=== PATIENT | female | born 1995 ===

== ENCOUNTER 2020-09-11 13:00 | Emergency (ER) | payer BC, MEDICAID ==
--- NOTE | 2020-09-11 13:34 | EDM.PDOC ---
ED HPI GENERAL MEDICAL PROBLEM - General Chief Complaint: Abdominal Pain Stated Complaint: LWR ABDOMINAL PAIN Time Seen by Provider: 09/11/20 13:04 Source of Information: Reports: Patient, Old Records History Limitations: Reports: No Limitations - History of Present Illness INITIAL COMMENTS - FREE TEXT/NARRATIVE: 24-year-old female with past medical history of menorrhagia, endometriosis, status post IUD placement presenting with abdominal pain and vaginal discharge. Patient had a Mirena IUD placed in March 2020. She reports a 1 month history of brownish vaginal discharge that became foul-smelling about 2 weeks ago. She is concerned that she may have either bacterial vaginosis or yeast infection. She also complains of several days of dysuria. She denies any vaginal bleeding or hematuria or genital lesions. She reports a 6-day history of intermittent right lower quadrant/right adnexal pain rating to the back. She describes this as "cramping", nothing makes it better or worse. No history of prior pain like this. She is status post appendectomy. Intermittently taking acetaminophen and ibuprofen at home and is also on Keflex for dental infection at the moment and has been taking this for several days. Denies fever, chills, diarrhea, hematemesis, emesis, hematochezia, history of kidney stones. ROS: A 10-point review of systems was negative, except as noted in the HPI (or in the ROS section of this note). Past medical history: Reviewed, no additional pertinent history. Surgical history: Reviewed in system, no additional pertinent history. Social history: Reviewed in system, no additional pertinent history. Family history: Reviewed in system, no additional pertinent history. PHYSICAL EXAM Vital signs reviewed. Nursing notes reviewed. Constitutional: Awake, alert, non-distressed. Head: Normocephalic, atraumatic. Eyes: EOMI, conjunctiva normal, no discharge, no scleral icterus. Ears, Nose, Throat: External ears and nose normal, moist oral mucosa. Cardiovascular: 2+ radial pulse, capillary refill less than 2 seconds. Pulmonary: normal work of breathing, no accessory muscle use. Abdomen/GI: Soft, mild right adnexal tenderness, nondistended, no guarding or rigidity, no masses. No CVA tenderness. (Female) Exam: Normal External Exam, Other. No: Cervical Discharge, Cervical Lesions, Vaginal Bleeding, Vaginal Discharge, Vaginal Lesions. Chaperoned by Nat Cameron RN. Musculoskeletal: No deformities. Integumentary: Appropriate color for ethnicity, warm, dry, no pallor or jaundice, no rash. Neurologic: Alert, answering questions appropriately, normal speech, no facial droop, moving all extremities well. Psychiatric: Appropriate mood and affect, normal thought process. RLQ abdomen Pain Score (Numeric/FACES): 4 - Related Data Allergies Allergy/AdvReac Type Severity Reaction Status Date / Time Penicillins Allergy Anaphylactic Verified 09/11/20 13:20 Shock Home Meds: Home Meds cephALEXin [Keflex] 500 mg PO QID 09/11/20 [History] nitrofurantoin macrocrystaL [Nitrofurantoin] 100 mg PO BID 5 Days #10 capsule 09/11/20 [Rx] Past Medical History - Past Health History Medical/Surgical History: Denies Medical/Surgical History Gastrointestinal History: Reports: None Genitourinary History: Reports: None [employer] History: Reports: Endometriosis, , Spontaneous Other [employer] History: P2 Psychiatric History: Reports: Anxiety - Past Surgical History GI Surgical History: Reports: Appendectomy Female Surgical History: Reports: Section Social & Family History - Family History Family Medical History: Noncontributory - Tobacco Use Second Hand Smoke Exposure: Yes - Caffeine Use Caffeine Use: Reports: Coffee - Recreational Drug Use Recreational Drug Use: No ED ROS GENERAL - Review of Systems Review Of Systems: See Below ED EXAM, GI/ABD - Physical Exam Exam: See Below (Female) Exam: Normal External Exam, Other. No: Cervical Discharge, Cervical Lesions, Vaginal Bleeding, Vaginal Discharge, Vaginal Lesions Course - Vital Signs Text/Narrative:: 24-year-old female with 1 month history of vaginal discharge and 6 days of right adnexal/right lower quadrant pain. Patient hemodynamically stable, afebrile, well-appearing, looks nontoxic. Differential diagnosis includes but is not limited to: STI, PID, TOA, ovarian cyst, ovarian torsion, kidney stone, intra-abdominal infection, epiploic appendagitis, BV, trichomonal infection, yeast infection, stump appendicitis, colitis, and many others. 1400: CBC shows normal cell lines. Urinalysis shows positive nitrites but no blood and test is negative. Declined offers of analgesic medications. Ordered additional labs, CT, pelvic ultrasound, wet prep and pelvic exam. 1422: Electrolytes and renal function are reassuring. Normal LFTs. Waiting for pelvic ultrasound and CT. 1558: CT abdomen/pelvis and pelvic ultrasound showed no acute pathology to exp albina the patient's right lower quadrant/right adnexal pain. CBC, metabolic panel, LFTs reassuring. Awaiting TMA swab results. 1622: Work-up is essentially negative. Blood work is reassuring. Urinalysis concerning for possible cystitis, she does have some dysuria so we will treat her for UTI. Her wet prep is negative. She is resting comfortably. I see no evidence of a vaginal or pelvic infection at this point. Her abdomen is soft and there are no peritoneal signs. No evidence of an acute surgical emergency at this point or an intra-abdominal infection or pelvic infection other than acute cystitis. Patient stable discharge home with outpatient primary care follow-up. Will prescribe a short course of Macrobid and recommend Tylenol and Motrin. Plan: Patient is stable to discharge home with outpatient primary care clinic follow-up. Strict emergency department return precautions were provided, patient indicated understanding. All questions were answered prior to departure. Discharged in good condition. Last Recorded V/S: Last Vital Signs Temp 35.7 C L 09/11/20 13:15 Pulse 99 09/11/20 13:15 Resp 16 09/11/20 13:15 BP 126/67 09/11/20 13:15 Pulse Ox 99 09/11/20 13:15 - Orders/Labs/Meds Orders: Active Orders 24 hr Category Date Time Status Pelvic Exam, Set Up [RC] ASDIRECTED Care 09/11/20 13:57 Active CHLAMYDIA AND GONORRHEA BY TMA Stat Lab 09/11/20 14:35 Received Sodium Chloride 0.9% [Saline Flush] Med 09/11/20 13:55 Active 10 ml FLUSH ASDIRECTED PRN Sodium Chloride 0.9% [Saline Flush] Med 09/11/20 13:55 Active 2.5 ml FLUSH ASDIRECTED PRN Saline Lock Insert [OM.PC] Stat Oth 09/11/20 13:55 Ordered Medication Orders Sodium Chloride (Saline Flush) 10 ml FLUSH ASDIRECTED PRN PRN Reason: Keep Vein Open Sodium Chloride (Saline Flush) 2.5 ml FLUSH ASDIRECTED PRN PRN Reason: Keep Vein Open Labs: Laboratory Tests 09/11/20 09/11/20 09/11/20 Range/Units 13:15 13:15 13:26 WBC 7.92 (4.0-11.0) K/uL RBC 4.48 (4.30-5.90) M/uL Hgb 13.5 (12.0-16.0) g/dL Hct 41.8 (36.0-46.0) % MCV 93.3 (80.0-98.0) fL MCH 30.1 (27.0-32.0) pg MCHC 32.3 (31.0-37.0) g/dL RDW Std Deviation 49.5 (28.0-62.0) fl RDW Coeff of Isabel 15 (11.0-15.0) % Plt Count 229 (150-400) K/uL MPV 10.40 (7.40-12.00) fL Neut % (Auto) 68.3 (48.0-80.0) % Lymph % (Auto) 23.1 (16.0-40.0) % Kendall % (Auto) 6.4 (0.0-15.0) % Eos % (Auto) 1.6 (0.0-7.0) % Baso % (Auto) 0.6 (0.0-1.5) % Neut # (Auto) 5.4 (1.4-5.7) K/uL Lymph # (Auto) 1.8 (0.6-2.4) K/uL Kendall # (Auto) 0.5 (0.0-0.8) K/uL Eos # (Auto) 0.1 (0.0-0.7) K/uL Baso # (Auto) 0.1 (0.0-0.1) K/uL Nucleated RBC % 0.0 /100WBC Nucleated RBCs # 0 K/uL Sodium (136-145) mmol/L Potassium (3.5-5.1) mmol/L Chloride (98-107) mmol/L Carbon Dioxide (21.0-32.0) mmol/L BUN (7.0-18.0) mg/dL Creatinine (0.6-1.0) mg/dL Est Cr Clr Drug Dosing mL/min Estimated GFR (MDRD) ml/min Glucose (74-106) mg/dL Calcium (8.5-10.1) mg/dL Total Bilirubin (0.2-1.0) mg/dL AST (15-37) IU/L ALT (14-63) IU/L Alkaline Phosphatase (46-116) U/L Total Protein (6.4-8.2) g/dL Albumin (3.4-5.0) g/dL Globulin (2.6-4.0) g/dL Albumin/Globulin Ratio (0.9-1.6) Urine Color YELLOW Urine Appearance SLT CLOUDY Urine pH 7.5 (5.0-8.0) Ur Specific Minter 1.020 (1.001-1.035) Urine Protein NEGATIVE (NEGATIVE) mg/dL Urine Glucose (UA) NEGATIVE (NEGATIVE) mg/dL Urine Ketones NEGATIVE (NEGATIVE) mg/dL Urine Occult Blood NEGATIVE (NEGATIVE) Urine Nitrite POSITIVE H (NEGATIVE) Urine Bilirubin NEGATIVE (NEGATIVE) Urine Urobilinogen 0.2 (<2.0) EU/dL Ur Leukocyte Esterase NEGATIVE (NEGATIVE) Urine RBC 0-1 (0-2/HPF) Urine WBC 2-3 (0-5/HPF) Ur Epithelial Cells FEW (NONE-FEW) Amorphous Sediment FEW (NEGATIVE) Urine Bacteria FEW (NEGATIVE) Urine Mucus FEW (NONE-MOD) Urine HCG, Qual NEGATIVE (NEGATIVE) Vangie species DNA (NEGATIVE) Gardnerella DNA Probe (NEGATIVE) Trichomonas DNA Probe (NEGATIVE) 09/11/20 09/11/20 Range/Units 13:26 14:35 WBC (4.0-11.0) K/uL RBC (4.30-5.90) M/uL Hgb (12.0-16.0) g/dL Hct (36.0-46.0) % MCV (80.0-98.0) fL MCH (27.0-32.0) pg MCHC (31.0-37.0) g/dL RDW Std Deviation (28.0-62.0) fl RDW Coeff of Isbael (11.0-15.0) % Plt Count (150-400) K/uL MPV (7.40-12.00) fL Neut % (Auto) (48.0-80.0) % Lymph % (Auto) (16.0-40.0) % Kendall % (Auto) (0.0-15.0) % Eos % (Auto) (0.0-7.0) % Baso % (Auto) (0.0-1.5) % Neut # (Auto) (1.4-5.7) K/uL Lymph # (Auto) (0.6-2.4) K/uL Kendall # (Auto) (0.0-0.8) K/uL Eos # (Auto) (0.0-0.7) K/uL Baso # (Auto) (0.0-0.1) K/uL Nucleated RBC % /100WBC Nucleated RBCs # K/uL Sodium 141 (136-145) mmol/L Potassium 3.6 (3.5-5.1) mmol/L Chloride 102 (98-107) mmol/L Carbon Dioxide 29.7 (21.0-32.0) mmol/L BUN 11 (7.0-18.0) mg/dL Creatinine 1.0 (0.6-1.0) mg/dL Est Cr Clr Drug Dosing 71.76 mL/min Estimated GFR (MDRD) > 60.0 ml/min Glucose 88 (74-106) mg/dL Calcium 9.6 (8.5-10.1) mg/dL Total Bilirubin 0.3 (0.2-1.0) mg/dL AST 14 L (15-37) IU/L ALT 20 (14-63) IU/L Alkaline Phosphatase 71 (46-116) U/L Total Protein 8.1 (6.4-8.2) g/dL Albumin 4.8 (3.4-5.0) g/dL Globulin 3.3 (2.6-4.0) g/dL Albumin/Globulin Ratio 1.5 (0.9-1.6) Urine Color Urine Appearance Urine pH (5.0-8.0) Ur Specific Minter (1.001-1.035) Urine Protein (NEGATIVE) mg/dL Urine Glucose (UA) (NEGATIVE) mg/dL Urine Ketones (NEGATIVE) mg/dL Urine Occult Blood (NEGATIVE) Urine Nitrite (NEGATIVE) Urine Bilirubin (NEGATIVE) Urine Urobilinogen (<2.0) EU/dL Ur Leukocyte Esterase (NEGATIVE) Urine RBC (0-2/HPF) Urine WBC (0-5/HPF) Ur Epithelial Cells (NONE-FEW) Amorphous Sediment (NEGATIVE) Urine Bacteria (NEGATIVE) Urine Mucus (NONE-MOD) Urine HCG, Qual (NEGATIVE) Vangie species DNA NEGATIVE (NEGATIVE) Gardnerella DNA Probe NEGATIVE (NEGATIVE) Trichomonas DNA Probe NEGATIVE (NEGATIVE) Meds: Medications Generic Name Dose Route Start Last Admin Trade Name Freq PRN Reason Stop Dose Admin Sodium Chloride 10 ml 09/11/20 13:55 Saline Flush FLUSH ASDIRECTED PRN Keep Vein Open Sodium Chloride 2.5 ml 09/11/20 13:55 Saline Flush FLUSH ASDIRECTED PRN Keep Vein Open Discontinued Medications Generic Name Dose Route Start Last Admin Trade Name Freq PRN Reason Stop Dose Admin Iopamidol 100 ml 09/11/20 14:50 09/11/20 14:50 Isovue Multipack-370 (76%) IVPUSH 09/11/20 14:51 100 ml ONETIME ONE Administration Departure - Departure Time of Disposition: 16:23 Disposition: Home, Self-Care 01 Condition: Good Clinical Impression: Right lower quadrant abdominal pain Acute cystitis Qualifiers: Hematuria presence: without hematuria Qualified Code(s): N30.00 - Acute cystitis without hematuria - Discharge Information *PRESCRIPTION DRUG MONITORING PROGRAM REVIEWED*: Not Applicable *COPY OF PRESCRIPTION DRUG MONITORING REPORT IN PATIENT MANAV: Not Applicable Instructions: Urinary Tract Infection, Adult, Abdominal Pain, Adult, [id number], Pain Without a Known Cause Referrals: [facility] - Family Practice [Provider Group] - 1 Week (Follow-up as needed if symptoms do not improve.) Forms: ED Department Discharge Additional Instructions: You were seen in the emergency department for abdominal pain and vaginal discharge. At this point your CT scan, ultrasound, and blood work are normal. We do not see an obvious explanation for your abdominal pain, there is no evidence of an acute infection or a condition that would need surgery at this point. It looks like you may have a urinary tract infection based on urine testing and we will prescribe some antibiotics. For pain I recommend [id number] extra strength Tylenol and ibuprofen. I do want you to follow-up with a primary medicine clinic in the next few days for reevaluation if your pain does not go away. Warning signs to come back to the ER include heavy vaginal bleeding, fever, chills, worsening pain, or any other new or concerning symptoms. Please return the emergency department immediately if your symptoms worsen or if you feel worse. Thank you for choosing the [facility] emergency department in [place] for your medical needs today. It was a pleasure caring for you. The following information is given to patients seen in the emergency department who are being discharged. This information is to outline your options for follow-up care. We provide all patients seen in our emergency department with a follow-up referral. The need for follow-up, as well as the timing and circumstances, are variable depending upon the specifics of your emergency department visit. If you don't have a primary care physician on staff, we will provide you with a referral. We always advise you to contact your personal physician following an emergency department visit to inform them of the circumstance of the visit and for follow-up with them and/or the need for any referrals to a consulting specialist. The emergency department will also refer you to a specialist when appropriate. This referral assures that you have the opportunity for follow-up care with a specialist. All of these measure are taken in an effort to provide you with optimal care, which includes your follow-up. Under all circumstances we always encourage you to contact your private physician who remains a resource for coordinating your care. When calling for follow-up care, please make the office aware that this follow-up is from your recent emergency room visit. If for any reason you are refused follow-up, please contact the [facility] Emergency Department at and asked to speak to the emergency department charge nurse. If you do not have a primary care physician that is caring for you, you can contact these clinics below to set up an appointment to establish care: [facility] - Primary Care [address] [place] [address] [place] [address] [facility] [address] [place] [address] Sepsis Event Note (ED) - Evaluation Sepsis Screening Result: No Definite Risk - Focused Exam Vital Signs: Vital Signs Temp Pulse Resp BP Pulse Ox 09/11/20 13:15 35.7 C L 99 16 126/67 99 - My Orders Last 24 Hours: My Active Orders 09/11/20 13:55 Sodium Chloride 0.9% [Saline Flush] 10 ml FLUSH ASDIRECTED PRN Sodium Chloride 0.9% [Saline Flush] 2.5 ml FLUSH ASDIRECTED PRN Saline Lock Insert [OM.PC] Stat 09/11/20 13:57 Pelvic Exam, Set Up [RC] ASDIRECTED 09/11/20 14:35 CHLAMYDIA AND GONORRHEA BY TMA Stat - Assessment/Plan Last 24 Hours: My Active Orders 09/11/20 13:55 Sodium Chloride 0.9% [Saline Flush] 10 ml FLUSH ASDIRECTED PRN Sodium Chloride 0.9% [Saline Flush] 2.5 ml FLUSH ASDIRECTED PRN Saline Lock Insert [OM.PC] Stat 09/11/20 13:57 Pelvic Exam, Set Up [RC] ASDIRECTED 09/11/20 14:35 CHLAMYDIA AND GONORRHEA BY TMA Stat
[2020-09-11] MEDS ORDERED: Sodium Chloride 0.9% 10 ML Syringe FLUSH PRN (13:55)
[2020-09-11] MEDS ORDERED: Sodium Chloride 0.9% 2.5 ML Syringe FLUSH PRN (13:55)
[2020-09-11 14:11] LABS: BLOOD UREA NITROGEN,BUN 11 mg/dL (7.0-18.0); CARBON DIOXIDE,CO2 29.7 mmol/L (21.0-32.0); CHLORIDE,CL 102 mmol/L (98-107); GLUCOSE RANDOM 88 mg/dL (74-106); POTASSIUM,K 3.6 mmol/L (3.5-5.1); SODIUM,NA 141 mmol/L (136-145)
[2020-09-11] MEDS ORDERED: Iopamidol 755 MG/ML 500 ML Multipack Bottle IVPUSH ONE (14:50)
--- NOTE | 2020-09-11 15:12 | CT ---
INDICATION: Right lower quadrant and right adnexal pain radiating to the back. TECHNIQUE: CT abdomen and pelvis acquired with IV contrast. 100 mL IV Isovue 370. COMPARISON: Pelvic ultrasound 01/15/2018. FINDINGS: Lower chest: Unremarkable. Liver: No hepatic lesion. Gallbladder and bile ducts: No cholelithiasis or biliary ductal dilatation. Spleen: Unremarkable. Pancreas: Unremarkable. Adrenal glands: Unremarkable. Kidneys: No kidney or ureteral stones and no hydronephrosis. No renal lesions. GI tract: No bowel obstruction inflammation. Appendix not definitively visualized however there are no secondary signs of acute appendicitis such is mesenteric stranding, free fluid, phlegmon or free air. Vascular structures: No sign of aneurysm. Lymph nodes: No abdominal or pelvic lymphadenopathy. Miscellaneous: No ascites. Pelvic Organs: An IUD appears in the appropriate position. No adnexal masses. Bones: No acute abnormality. No suspicious bone lesion. Benign bone islands noted in the right acetabulum, right proximal femur and left femoral head. IMPRESSION: 1. The appendix was not visualized but there are no secondary signs for acute appendicitis. 2. Normal appearing right adnexa. Consider pelvic ultrasound if there is concern for ovarian pathology. 3. No findings to explain right lower quadrant abdominal pain. Please note that all CT scans at this facility use dose modulation, iterative reconstruction, and/or weight-based dosing when appropriate to reduce radiation dose to as low as reasonably achievable. Dictated by Ruba Pete MD @ Sep 11 2020 3:00PM Signed by Dr. Ruba Pete @ Sep 11 2020 3:10PM
--- NOTE | 2020-09-11 15:40 | US ---
INDICATION: Right lower quadrant pain. TECHNIQUE: Ultrasound pelvis transvaginal.. Real time sonographic images with Spectral and color Doppler imaging of the ovaries were obtained. COMPARISON: CT of the abdomen and pelvis 09/11/2020. FINDINGS: Uterus: Measures 8.3 x 3.7 x 4.6 cm. Normal echotexture of the myometrium. No masses. Endometrium: Measures 6 mm in thickness. No sign of endometrial mass or fluid. An intrauterine device is in the appropriate position in the endometrial canal. Right ovary: Measures 3.3 x 1.8 x 3.6 cm. No ovarian or adnexal masses. Normal arterial and venous blood flow. Left ovary: Measures 3.0 x 1.9 x 2.9 cm. No ovarian or adnexal masses. Normal arterial and venous blood flow. Cul-de-sac: No significant free fluid. IMPRESSION: 1. Unremarkable pelvic ultrasound. 2. IUD appropriately positioned. Dictated by Ruba Pete MD @ Sep 11 2020 3:34PM Signed by Dr. Ruba Pete @ Sep 11 2020 3:37PM
[2020-09-14 13:07] LABS: C.TRACHOMATIS BY TMA Negative (Negative); N.GONORRHOEAE BY TMA Negative (Negative)
== END 2020-09-11 16:43 | disposition home or self-care (01) ==
LOC: MW.ED 13:00
DX: N30.00 Acute cystitis without hematuria (principal); Z88.0 Allergy status to penicillin; Z90.49 Acquired absence of other specified parts of digestive tract; Z77.22 Contact with and (suspected) exposure to environmental tobacco smoke (acute) (chronic)
CPT/HCPCS: 74177; 76856; 80053; 81001; 81025; 85025; 87480; 87491; 87510; 87591; 87660; 99284; Q9967

== ENCOUNTER 2023-05-09 00:41 | Inpatient (IN) | payer OTHER ==
[2023-05-09] MEDS ORDERED: Lidocaine 1% 50 ML MDV INJECT PRN (01:34)
[2023-05-09] MEDS ORDERED: Tranexamic Acid 1,000 MG in Sodium Chloride 0.9% 100 ML IV PRN ×2 (01:34→07:44)
[2023-05-09] MEDS ORDERED: Sodium Chloride 0.9% 10 ML Syringe FLUSH PRN (01:34)
[2023-05-09] MEDS ORDERED: Sodium Chloride 0.9% 2.5 ML Syringe FLUSH PRN (01:34)
[2023-05-09] MEDS ORDERED: Water For Irrigation,Sterile 1,000 ML Container IRR PRN (01:34)
[2023-05-09] MEDS ORDERED: Sodium Chloride 0.9% 20 ML SDV IV PRN (01:34)
[2023-05-09] MEDS ORDERED: Citric Acid/Sodium Citrate Solution 30 ML Cup PO ONE (01:34)
[2023-05-09] MEDS ORDERED: Misoprostol 200 MCG Tab PO PRN (01:34)
[2023-05-09] MEDS ORDERED: Butorphanol 1 MG/ML SDV IVPUSH PRN (01:34)
[2023-05-09] MEDS ORDERED: Methylergonovine 0.2 MG/1 ML Amp IM PRN ×2 (01:34→07:44)
[2023-05-09] MEDS ORDERED: Carboprost Tromethamine 250 MCG/1 mL Vial IM PRN (01:34)
[2023-05-09] MEDS ORDERED: Oxytocin/0.9 % Sodium Chloride 30 UNIT/500 ML BAG IV SCH ×2 (01:45)
[2023-05-09] MEDS ORDERED: Lactated Ringers 1,000 ML IV SCH ×3 (01:45→07:45)
[2023-05-09] MEDS ORDERED: fentaNYL 100 MCG/2 ML SDV ONE (02:00)
[2023-05-09] MEDS ORDERED: Oxytocin 10 Units/1 ML SDV ONE (02:00)
[2023-05-09] MEDS ORDERED: Morphine PF 10 MG/10 ML SDV ONE (02:00)
[2023-05-09] MEDS ORDERED: ceFAZolin 1 GM Vial ONE (02:00)
[2023-05-09] MEDS ORDERED: Ondansetron 4 MG/2 ML SDV ONE (02:00)
[2023-05-09] MEDS ORDERED: Ketorolac 30 MG/ML SDV ONE (02:00)
[2023-05-09] MEDS ORDERED: Dexamethasone 4 MG/ML 5 ML MDV ONE (02:00)
[2023-05-09] MEDS ORDERED: Ropivacaine 0.5% 5 MG/ML 30 ML SDV ONE (02:00)
[2023-05-09] MEDS ORDERED: Clindamycin Phosphate in D5W 600 MG/50 ML Premix Bag ONE (02:15)
[2023-05-09] MEDS ORDERED: Water For Injection, Sterile 20 ML ONE (03:00)
[2023-05-09 06:55] LABS: HEMATOCRIT 32.9 % (36.0-46.0); MEAN CORPUSCULAR HEMOGLOBIN 29.6 pg (27.0-32.0); MEAN CORPUSCULAR HGB CONC 33.4 g/dL (31.0-37.0); MEAN CORPUSCULAR VOLUME 88.7 fL (80.0-98.0); MEAN PLATELET VOLUME 11.5 fL (7.40-12.00); RED BLOOD CELL COUNT 3.71 M/uL (4.30-5.90); WHITE BLOOD CELL COUNT,WBC 11.44 K/uL (4.0-11.0)
[2023-05-09] MEDS ORDERED: Citric Acid/Sodium Citrate Solution 30 ML Cup ONE (07:42)
[2023-05-09] MEDS ORDERED: Bisacodyl 10 MG Supp RECTAL PRN (07:44)
[2023-05-09] MEDS ORDERED: Lanolin 100% Cream 7 GM Tube TOP PRN (07:44)
[2023-05-09] MEDS ORDERED: Misoprostol 200 MCG Tab RECTAL PRN (07:44)
[2023-05-09] MEDS ORDERED: Ibuprofen 800 MG Tab PO PRN (07:44)
[2023-05-09] MEDS ORDERED: Temazepam 15 MG Cap PO PRN (07:44)
[2023-05-09] MEDS ORDERED: Ondansetron 4 MG/2 ML SDV IVPUSH PRN ×3 (07:44→10:15)
[2023-05-09] MEDS ORDERED: diphenhydrAMINE 25 MG Cap PO PRN (07:44)
[2023-05-09] MEDS ORDERED: Acetaminophen 325 MG Tab PO PRN (07:44)
[2023-05-09] MEDS ORDERED: diphenhydrAMINE 50 MG/ML SDV IVPUSH PRN ×2 (07:44→10:15)
[2023-05-09] MEDS ORDERED: Ketorolac 30 MG/ML SDV IVPUSH SCH (07:45)
[2023-05-09] MEDS ORDERED: droPERidol 5 MG/2 ML SDV IVPUSH PRN (10:15)
[2023-05-09] MEDS ORDERED: Acetaminophen/oxyCODONE 325-5 MG Tab PO PRN ×2 (10:15→13:00)
[2023-05-09] MEDS ORDERED: Naloxone 0.4 MG/ML SDV IVPUSH PRN (10:15)
[2023-05-09] MEDS ORDERED: fentaNYL 50 MCG/ML SDV IVPUSH PRN (10:15)
[2023-05-09] MEDS ORDERED: HYDROmorphone 1 MG/ML Syringe IVPUSH PRN (10:15)
[2023-05-09] MEDS ORDERED: fentaNYL 100 MCG/2 ML SDV IVPUSH PRN (10:15)
[2023-05-09] MEDS ORDERED: Morphine 2 MG/ML SYRINGE IVPUSH PRN (10:15)
[2023-05-09] MEDS ORDERED: Albuterol 0.083% 2.5 MG/3 ML Neb Soln NEB PRN (10:15)
[2023-05-09] MEDS ORDERED: Metoclopramide 10 MG/2 ML SDV IVPUSH PRN (10:15)
[2023-05-09] MEDS ORDERED: Lactated Ringers 500 ML IV SCH (10:44)
[2023-05-09 11:01] LABS: HEMATOCRIT 31.8 % (36.0-46.0); HEMOGLOBIN 10.4 g/dL (12.0-16.0)
[2023-05-09] MEDS: Ketorolac 30 MG/ML SDV IVPUSH PRN ×2 (11:44→19:57)
[2023-05-09] MEDS: Docusate Sodium 100 MG Cap PO SCH ×2 (14:23→19:56)
[2023-05-10] MEDS: Acetaminophen/oxyCODONE 325-5 MG Tab PO PRN ×3 (02:48→10:23)
[2023-05-10] MEDS: Docusate Sodium 100 MG Cap PO SCH ×2 (05:25→10:26)
[2023-05-10 06:19] LABS: HEMATOCRIT 28.4 % (36.0-46.0); HEMOGLOBIN 9.2 g/dL (12.0-16.0)
== END 2023-05-10 14:17 | disposition home or self-care (01) | DRG 788 ==
LOC: MW.OBCHECK 00:41 → MW.OB 00:42 → MW.OBCHECK 01:16 → OBSVTOIN 01:34 → MW.OB 10:23
PROVIDERS: ADMIT Obstetrics & Gynecology; ATTEND Obstetrics & Gynecology Obstetrics
PROC: 10D00Z1 Extraction of Products of Conception, Low, Open Approach (ICD-10-PCS; principal; 2023-05-08)
DX: O34.211 Maternal care for low transverse scar from previous cesarean delivery (principal); Z37.0 Single live birth; Z3A.39 39 weeks gestation of pregnancy; Z88.0 Allergy status to penicillin
CPT/HCPCS: 36415; 51702; 59025; 85014; 85018; 85027; 86592; 86850; 86900; 86901; A9270-GY; J0690; J1100; J1885; J2274; J2405; J2590; J2795; J3010; J3490; J7120